=== PATIENT | female | born 1980 | race Caucasian/White ===

== ENCOUNTER 2020-03-12 13:17 | Outpatient (RCR) | payer OTHER, SELFPAY | END 2020-04-16 13:23 | disposition home or self-care (01) | LOC: HO.WCC 13:17 | PROVIDERS: PCP Physician Assistant; Visit Provider Surgery | DX: L89.154 Pressure ulcer of sacral region, stage 4 (principal); T81.89XD Other complications of procedures, not elsewhere classified, subsequent encounter; K43.9 Ventral hernia without obstruction or gangrene; G62.9 Polyneuropathy, unspecified; Z87.891 Personal history of nicotine dependence; Z86.718 Personal history of other venous thrombosis and embolism | CPT/HCPCS: 97597 ==

== ENCOUNTER 2020-04-28 13:45 | Outpatient (REF) | payer OTHER, SELFPAY ==
--- NOTE | 2020-04-28 13:49 | CT_ITS ---
EXAMINATION: CT PELVIS (CYSTOGRAM) CLINICAL INFORMATION: Fistula, CT cystogram COMPARISON: CT abdomen and pelvis with IV contrast 11/16/2018. TECHNIQUE: Helical scanning was performed with submillimeter collimation through the pelvis without contrast, followed by repeat imaging after filling of urinary bladder with 50 mL Omnipaque 350 contrast through Baxter catheter. Subsequently, the bladder contrast was emptied through the Baxter catheter and post drainage images obtained. Sagittal and coronal multiplanar 2-D reconstructions are generated on the CT workstation and uploaded to PACS. This CT examination was performed using dose optimization techniques as appropriate, variously including the following: *Automated exposure control *Adjustment of mA and/or kV according to patient size (this includes techniques or standardized protocols for targeted exams where dose is matched to indication/reason for exam; i.e. extremities or head) *Use of iterative reconstruction technique DLP: 300 mGy-cm FINDINGS: The bladder has mild macrolobulated contours similar to prior CT. 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 There is anterior abdominal wall ulceration again noted. Following contrast, there is no extravasation of contrast nor fistula with bowel or vaginal cavity. No extravasation or fistula demonstrated on the postdrainage images. No vesicoureteral reflux. Uterus is unremarkable. There are bilateral adnexal dominant follicles, left 1.9 cm and right 2.4 cm. There is no pelvic ascites or fluid collection. There is moderate stool in the colon. No inflammatory changes in bowel or mesentery. No lymphadenopathy. There are chronic osseous changes in the pelvis with variable sclerosis and posttraumatic deformities. Vertically oriented fracture line again noted left hemipelvis. There is flattening of the femoral heads, greater on the right. The reformatted images suggest new hairline fracture involving vertebral body L4 (series 4 image 45, series 5 image 54). CT/CT pelvis wo con IMPRESSION: 1. Small urachal diverticulum under 2 cm. No extravasation of contrast or fistula with bowel or vaginal cavity. No vesicoureteral reflux. 2. Chronic pelvic deformity and old fractures. Hairline fracture vertebral body L4 since prior CT 2019.
[2020-04-28] MEDS: iohexoL 350 MG/ML 100 ML INFUS..BTL 60 ML IV (15:34)
== END 2020-04-28 13:46 | disposition home or self-care (01) ==
LOC: HO.CT 13:45
PROVIDERS: PCP Physician Assistant; Visit Provider Urology
DX: L98.8 Other specified disorders of the skin and subcutaneous tissue (principal)
CPT/HCPCS: 72192; Q9967

== ENCOUNTER 2020-07-28 13:58 | Outpatient (RCR) | payer OTHER, SELFPAY | END 2020-09-22 12:00 | disposition home or self-care (01) | LOC: HO.WCC 13:58 | PROVIDERS: PCP Physician Assistant; Visit Provider Physician Assistant | DX: L89.154 Pressure ulcer of sacral region, stage 4 (principal); K43.9 Ventral hernia without obstruction or gangrene; S31.105D Unspecified open wound of abdominal wall, periumbilic region without penetration into peritoneal cavity, subsequent encounter; Z87.891 Personal history of nicotine dependence | CPT/HCPCS: 99213 ==

== ENCOUNTER 2020-12-29 01:44 | Emergency (ER) | payer OTHER, SELFPAY ==
[2020-12-29 01:49] VITALS: BP 136/80; PULSE 112; RESP 16; TEMP 36.8; O2SAT 97; BMI 15.5
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
== END 2020-12-29 09:53 | disposition home or self-care (01) ==
PROVIDERS: Emergency Provider Student in an Organized Health Care Education/Training Program
DX: R45.4 Irritability and anger (principal)
CPT/HCPCS: 99282; 99283